=== PATIENT | female | born 1955 | race Caucasian/White ===

== ENCOUNTER → 2017-02-07 08:11 | Outpatient (CLI) | payer MEDICARE ==
[2017-02-07 09:01] LABS: ALBUMIN 3.6 g/dL (3.4-5.0); BILIRUBIN - DIRECT 0.1 mg/dL (0.00-0.30); BILIRUBIN - INDIRECT 0.43 mg/dL (0.00-1.00); BILIRUBIN - TOTAL 0.53 mg/dL (0.2-1.3); PROTEIN - SERUM 7.4 g/dL (6.4-8.2)
== END | disposition home or self-care (01) ==
LOC: D.LAB 02-05 08:45 → D.US 02-05 09:00 → D.NM 02-05 09:30 → D.LAB 02-05 09:30
PROVIDERS: Internal Medicine Gastroenterology
DX: R10.9 Unspecified abdominal pain (principal); R11.2 Nausea with vomiting, unspecified; R19.7 Diarrhea, unspecified

== ENCOUNTER 2017-02-28 05:22 | Day surgery (SDC) | payer MEDICARE ==
[2017-02-27 14:15] LABS: HEMATOCRIT 39.9 % (36.0-48.0); MCH 28.4 pg (26.0-34.0); MCHC 32.6 g/dL (31.0-37.0); MCV 87.3 fL (80.0-100.0); MEAN PLATELET VOLUME 10.7 fL (7.4-10.4); RBC 4.57 10x6/uL (4.00-5.40); RDW 14.5 % (11.5-14.5); WBC 5.6 10x3/uL (4.8-10.8)
[2017-02-27 14:43] LABS: CALC OSMOLALITY 276 mosm/kg (275-300); CALCIUM 9.6 mg/dL (8.5-10.1); CARBON DIOXIDE 25.3 mmol/L (21.0-32.0); CHLORIDE - SERUM 104 mmol/L (98-107); CREATININE - SERUM 0.8 mg/dL (0.6-1.3); GLUCOSE 85 mg/dL (74-106); SODIUM 140 mmol/L (136-145); UREA NITROGEN 10 mg/dL (7-18); eGFR NON AFRICAN AMERICAN 78 mL/min (90-120)
[~2017-02-28] VITALS: Ht 157.5 cm; Wt 77.6 kg
[2017-02-28 10:17] VITALS: BP 155/84; Ht 157.5 cm; Wt 77.6 kg
[2017-02-28] MEDS ORDERED: GLUCOPHAGE1000 MG PO (10:27)
[2017-02-28] MEDS ORDERED: CELEBREX200 MG PO (10:27)
[2017-02-28] MEDS ORDERED: OXYBUTYNIN15 MG/BOTT PO (10:28)
[2017-02-28] MEDS ORDERED: GLUCOTROL ER2.5 MG PO (10:28)
[2017-02-28] MEDS ORDERED: FLAGYL500 MG PO (10:29)
[2017-02-28] MEDS ORDERED: FLOVENT HFA 22012 GM INH (10:30)
[2017-02-28] MEDS ORDERED: PROBIOTIC1 EAC1 PO (10:30)
[2017-02-28] MEDS ORDERED: DIOVAN40 MG PO (10:31)
[2017-02-28] MEDS ORDERED: HYDROCODON-ACE1 EAC7 PO (15:51)
== END 2017-02-28 19:30 | disposition home or self-care (01) ==
LOC: D.OPS 05:22 → D.PAN 10:45 → D.OPS 10:45 → D.PAN 12:45 → D.OPS 19:30
PROVIDERS: Anesthesiology
DX: K80.20 Calculus of gallbladder without cholecystitis without obstruction (principal); R10.11 Right upper quadrant pain; I10 Essential (primary) hypertension; E11.9 Type 2 diabetes mellitus without complications; Z01.812 Encounter for preprocedural laboratory examination